=== PATIENT | female | born 1990 | race Caucasian/White ===

== ENCOUNTER 2019-08-08 13:56 | Emergency (ER) | payer OTHER, MEDICAID, SELFPAY ==
[2019-08-08 13:57] VITALS: BP 125/79; PULSE 81; RESP 18; TEMP 36.4; O2SAT 100; BMI 24.7
[2019-08-08 14:31] LABS: Add Manual Diff / Slide Review NO; Basophils Absolute Auto 0 /uL (0-100); Basophils Percent Auto 0.7 % (0-2); Eosinophils Absolute Auto 0 /uL (0-450); Eosinophils Percent Auto 0.6 % (2-4); Hematocrit 30.3 % (36-46); Hemoglobin 10.5 g/dL (12.0-16.0); Lymphocytes Absolute Auto 2100 /uL (1100-4500); Lymphocytes Percent Auto 60.2 % (25-40); Mean Corpuscular HGB Conc 34.6 % (30-36); Mean Corpuscular Hemoglobin 29.3 PG (26-34); Mean Corpuscular Volume 84.8 fL (80-100); Monocytes Absolute Auto 200 /uL (0-900); Monocytes Percent Auto 6.9 % (3-14); Neutrophils Absolute Auto 1100 /uL (1500-7000); Neutrophils Percent Auto 31.6 % (50-75); Platelet Count 175 X10^3/uL (150-400); Red Blood Cell Count 3.57 X10^6/uL (4.0-5.2); Red Cell Distribution Width 14.4 % (11.6-14.8); White Blood Cell Count 3.5 X10^3/uL (4.5-11.0)
[2019-08-08 14:43] LABS: Blood Urea Nitrogen 9 mg/dL (7-17); Calcium 9.1 mg/dL (8.4-10.2); Carbon Dioxide 25 mmol/L (22-32); Chloride 104 mmol/L (98-107); Estimated Glomerular Filt Rate > 60.0 mL/min (>60); Glucose 106 mg/dL (70-100); HEMOLYSIS < 15 (0-50); Potassium 3.6 mmol/L (3.4-5.1); Sodium 139 mmol/L (137-145)
--- NOTE | 2019-08-08 15:24 | ED.FEMALEGU ---
HPI - Female Genitourinary <THUY Belle - Last Filed: 08/08/19 21:01> General Chief complaint: Vaginal Bleeding Stated complaint: Severe Uterine, Back, and Leg Pain Time Seen by Provider: 08/08/19 15:11 Source: patient and family Mode of arrival: Ambulatory History of Present Illness HPI Narrative: 29yo female with a history of anemia, presents to the emergency department complaining of severe lower pelvic cramping approximately an hour ago. She states she was riding the car and developed a sharp stabbing 8/10 cramping that lasted about 30-40 minutes induration. She states this is the most severe that she has felt. Patient states she is currently menstruating right now in during the cramping she had a slight increase in clots. She denies any other abnormalities to her menstrual cycle such as change in cycle duration, increased bleeding, or prolonged bleeding. Patient denies any other symptoms such as nausea, vomiting, diarrhea, chest pain, shortness of breath, fevers, chills, or other concerns. Patient denies any abnormal vaginal discharge at this time. She states pain has resolved at this time. Related Data Allergies Allergy/AdvReac Type Severity Reaction Status Date / Time No Known Drug Allergies Allergy Verified 08/08/19 14:03 Review of Systems <THUY Belle - Last Filed: 08/08/19 21:01> Review of Systems Narrative: REVIEW OF SYSTEMS: GENERAL: Denies fever, chills, malaise, or wt. loss. HENT: No head trauma, sore throat, or dysphagia. EYES: No loss of vision, double vision, eye pain, or irritation. CARDIOVASCULAR: No chest pain, palpitations, or orthopnea. RESPIRATORY: No shortness of breath or cough. GASTROINTESTINAL: Denies nausea or vomiting, see HPI. GENITOURINARY: No flank pain, urinary incontinence, hesitancy, frequency, or dysuria. No vaginal discharge or dyspareunia. Denies concerns for STIs MUSCULOSKELETAL: No pain, weakness, or trauma. INTEGUMENTARY: No rash, lesions, or pruritus. NEURO: No numbness, tingling, memory loss, confusion, or headaches. PSYCH: No behavior or mood changes. Patient History <THUY Belle - Last Filed: 08/08/19 21:01> Medical History (Updated 08/08/19 @ 20:57 by THUY Belle) No significant medical problems (Acute) Substance Use Type: does not use Exam <THUY Belle - Last Filed: 08/08/19 21:01> Initial Vital Signs Initial Vital Signs: Vital Signs Temperature 97.6 F 08/08/19 13:57 Pulse Rate 81 08/08/19 13:57 Respiratory Rate 18 08/08/19 13:57 Blood Pressure 125/79 08/08/19 13:57 Pulse Oximetry 100 08/08/19 13:57 PHYSICAL EXAMINATION: GENERAL: Well groomed, alert, and cooperative. Answers questions promptly and appropriately. Vital signs noted. HENT: Normocephalic, atraumatic. Hearing intact. Oral mucosa is pink and moist. EYES: Conjunctiva pink, sclera white, no periorbital swelling. CARDIOVASCULAR: S1 and S2 sounds normal. Regular rate and rhythm, no murmurs, clicks, or bruits. No pedal edema. RESPIRATORY: Normal respiratory rate, trachea midline, airway patent. No stridor, nasal flaring or accessory muscle use. Lungs are clear in all krishnamurthy without wheeze, rhonchi, or crackles. GASTROINTESTINAL: Bowel sounds normoactive. Abdomen is soft and non-tender. No organomegaly, no palpable masses. GENITALURINARY: No flank tenderness. MUSCULOSKELETAL: Normal gait and coordination. Equal tone and mass bilaterally. EXTREMITIES: CMS intact. SKIN: Warm, dry, soft, appropriate color for ethnicity. No lesions, rashes, or wounds to visualized areas. NEURO: Alert and Oriented X 3. Good coordination. No ataxia, or sensory deficits, or cognitive issues. PSYCH: Appropriate affect and mood. <Darwin Bonilla DO - Last Filed: 08/08/19 21:03> Initial Vital Signs Initial Vital Signs: Vital Signs Temperature 97.6 F 08/08/19 13:57 Pulse Rate 81 08/08/19 13:57 Respiratory Rate 18 08/08/19 13:57 Blood Pressure 125/79 08/08/19 13:57 Pulse Oximetry 100 08/08/19 13:57 Course <THUY Belle - Last Filed: 08/08/19 21:01> Course Course Narrative: Patient denies any recurrence of pain throughout the emergency department stay. Orders Ordered: ED Orders 08/08/19 14:18 Basic Metabolic Panel Stat Complete Blood Count AUTO DIFF Stat 08/08/19 15:23 US pelvic complete Stat Vital Signs Vital signs: Vital Signs - 8 hr 08/08/19 13:57 08/08/19 16:50 Temperature 97.6 F Pulse Rate 81 81 Respiratory Rate 18 19 Blood Pressure 125/79 122/68 Pulse Oximetry 100 100 <Darwin Bonilla DO - Last Filed: 08/08/19 21:03> Orders Ordered: ED Orders 08/08/19 14:18 Basic Metabolic Panel Stat Complete Blood Count AUTO DIFF Stat 08/08/19 15:23 US pelvic complete Stat Vital Signs Vital signs: Vital Signs - 8 hr 08/08/19 13:57 08/08/19 16:50 Temperature 97.6 F Pulse Rate 81 81 Respiratory Rate 18 19 Blood Pressure 125/79 122/68 Pulse Oximetry 100 100 MDM - Female Genitourinary <Erika THUY Soto - Last Filed: 08/08/19 21:01> Medical Records Attestation: I reviewed the patient's medical records. Lab Data Attestation: I reviewed the patient's lab results. Result diagrams: 08/08/19 14:18 08/08/19 14:18 Labs: Lab Results 08/08/19 08/08/19 Range/Units 14:18 14:18 WBC 3.5 L (4.5-11.0) X10^3/uL RBC 3.57 L (4.0-5.2) X10^6/uL Hgb 10.5 L (12.0-16.0) g/dL Hct 30.3 L (36-46) % MCV 84.8 (80-100) fL MCH 29.3 (26-34) PG MCHC 34.6 (30-36) % RDW 14.4 (11.6-14.8) % Plt Count 175 (150-400) X10^3/uL Neut % (Auto) 31.6 L (50-75) % Lymph % (Auto) 60.2 H (25-40) % [place] % (Auto) 6.9 (3-14) % Eos % (Auto) 0.6 L (2-4) % Baso % (Auto) 0.7 (0-2) % Neut # (Auto) 1100 L (7143-4615) /uL Lymph # (Auto) 2100 (2380-1739) /uL [place] # (Auto) 200 (0-900) /uL Eos # (Auto) 0 (0-450) /uL Baso # (Auto) 0 (0-100) /uL Sodium 139 (137-145) mmol/L Potassium 3.6 (3.4-5.1) mmol/L Chloride 104 (98-107) mmol/L Carbon Dioxide 25 (22-32) mmol/L BUN 9 (7-17) mg/dL Creatinine 0.50 L (0.52-1.04) mg/dL Estimated GFR > 60.0 (>60) mL/min BUN/Creatinine Ratio 18.0 (6-22) Glucose 106 H (70-100) mg/dL Calcium 9.1 (8.4-10.2) mg/dL Imaging Data US - STUDY ASSISTANT: Radiologist's Impression: [address] [address] Ultrasound Report Signed Patient: Tran Hester RMR#: [id number] : 1990Acct:[id number] Age/Sex: te of Service: 08/08/19 Loc: ED Accession Number: [id number] Procedure: US pelvic complete Ordering Provider: Erika Soto PROCEDURE: US PELVIC COMPLETE INDICATIONS: SEVERE UTERINE CRAMPING TECHNIQUE: Real-time scanning was performed of the pelvic organs, with image documentation. Additional endovaginal scanning was necessary due to incomplete visualization of the adnexal and endometrial structures by transabdominal scanning. COMPARISON: None. FINDINGS: Transabdominal scanning: Limited scanning through the kidneys shows no hydronephrosis. No pathologic free abdominal or pelvic fluid. Endovaginal scanning: Uterus: Uterus is anteverted and normal in size at 9.7 x 5.3 x 6 cm. The endometrium measures 7.2 mm in combined thickness. Trace endometrial fluid in the fundus. Ovaries: Within normal limits. Symmetric blood flow. Right ovary measures 3.2 x 2.2 x 1.7 cm. Left ovary measures 3.4 x 1.5 x 2 cm. IMPRESSION: 1. Normal sonographic appearance of the ovaries. No free fluid. 2. Trace endometrial fluid. Endometrial thickness is normal. 3. Otherwise normal sonographic appearance of the uterus. Dictated by: Jasbir Scales M.D. on 08/08/2019 at 16:04 Approved by: Jasbir Scales M.D. on 08/08/2019 at 16:07 [facility] Narrative Medical decision making narrative: This is a 29-year-old healthy female presenting to the emergency department for dysmenorrhea and cramping that lasted 35-45 minutes but as resolved upon admission to the emergency department. Ultrasound does not reveal any suspicious abnormalities. CBC reveals mild anemia, however, I suspect that this is, as patient states she has had anemia for years is not taking any supplements such as iron as well as patient does not report significant increase in bleeding or heavy menstruation. Differential for menstrual pain include primary dysmenorrhea, endometriosis (less likely due to lack of history), less likely ovarian cyst (lack of cyst seen on ultrasound), or hormone fluctuations. Less likely PID due to resolution of pain, lack of abnormal vaginal discharge, lack of concerns for STDs, and lack of other symptoms such as tachycardia or fever. Patient was referred to oxygen tank filler for further testing and follow-up. Patient remained pain-free and hemodynamically stable throughout the emergency department. Patient agrees with plan of care verbalized understanding. <Darwin Bonilla, DO - Last Filed: 08/08/19 21:03> Lab Data Labs: Lab Results 08/08/19 08/08/19 Range/Units 14:18 14:18 WBC 3.5 L (4.5-11.0) X10^3/uL RBC 3.57 L (4.0-5.2) X10^6/uL Hgb 10.5 L (12.0-16.0) g/dL Hct 30.3 L (36-46) % MCV 84.8 (80-100) fL MCH 29.3 (26-34) PG MCHC 34.6 (30-36) % RDW 14.4 (11.6-14.8) % Plt Count 175 (150-400) X10^3/uL Neut % (Auto) 31.6 L (50-75) % Lymph % (Auto) 60.2 H (25-40) % [place] % (Auto) 6.9 (3-14) % Eos % (Auto) 0.6 L (2-4) % Baso % (Auto) 0.7 (0-2) % Neut # (Auto) 1100 L (3593-2995) /uL Lymph # (Auto) 2100 (9894-3472) /uL [place] # (Auto) 200 (0-900) /uL Eos # (Auto) 0 (0-450) /uL Baso # (Auto) 0 (0-100) /uL Sodium 139 (137-145) mmol/L Potassium 3.6 (3.4-5.1) mmol/L Chloride 104 (98-107) mmol/L Carbon Dioxide 25 (22-32) mmol/L BUN 9 (7-17) mg/dL Creatinine 0.50 L (0.52-1.04) mg/dL Estimated GFR > 60.0 (>60) mL/min BUN/Creatinine Ratio 18.0 (6-22) Glucose 106 H (70-100) mg/dL Calcium 9.1 (8.4-10.2) mg/dL Discharge Plan Departure Patient Disposition: Home Clinical Impression: Dysmenorrhea Discharge Date/Time: 08/08/19 16:50 Instructions: DI for Dysmenorrhea Activity Restrictions/Additional Instructions: Thank you for entrusting me with your care today. As discussed, your ultrasound is unremarkable. Your blood work does show anemia, I recommend following up with your primary care provider about this to address this chronic issue. I suggest taking 400 mg of ibuprofen every 6 hours 2 days before her menstrual cycle to reduce pain. Follow-up with your STUDY ASSISTANT for further testing if indicated. Return emergency department for any new or worsening symptoms such as severe pain, uncontrollable vomiting, profuse bleeding, dizziness, syncope, or other concerns. Referrals: Jigna Madison MD [Physician] - (Dysmenorrhea) <Darwin Bonilla DO - Last Filed: 08/08/19 21:03> Sign Out Provider Sign Out Attestation: Dr Bonilla Co-Sign Statement: I was available for consultation during this patient's emergency department visit. This chart is signed by myself for administrative purposes only. I did not have direct contact with this patient during this visit. They were seen independently by the [facility].
[2019-08-08 16:50] VITALS: BP 122/68; PULSE 81; RESP 19; O2SAT 100
== END 2019-08-08 16:50 | disposition home or self-care (01) ==
PROVIDERS: Emergency Medicine; Emergency Provider Nurse Practitioner
DX: N94.6 Dysmenorrhea, unspecified (principal); R10.2 Pelvic and perineal pain; D64.9 Anemia, unspecified
CPT/HCPCS: 36415; 76830; 76856; 80048; 85025; 99283; 99284